=== PATIENT | male | born 1980 | race Caucasian/White ===

== ENCOUNTER 2018-01-04 15:15 | Emergency (ER) | payer OTHER | END 2018-01-04 16:47 | disposition home or self-care (01) | LOC: M ED 15:15 | DX: M62.830 Muscle spasm of back (principal); M54.9 Dorsalgia, unspecified; K21.9 Gastro-esophageal reflux disease without esophagitis; Z79.899 Other long term (current) drug therapy | CPT/HCPCS: 99282 ==

== ENCOUNTER 2020-11-30 18:01 | Emergency (ER) | payer OTHER ==
[~2020-11-30] VITALS: Ht 190.5 cm; Wt 93.8 kg
[~2020-11-30 18:01] MED LIST: CYCL-707 PO; IBUP80TA PO; NAPR-885 PO; NEXI40CA PO
[2020-11-30] MEDS ORDERED: SERT50TA29 (18:21)
[2020-11-30] MEDS ORDERED: ADDE12.5 PO (18:21)
[2020-11-30] MEDS ORDERED: STRA10CA PO (18:21)
--- NOTE | 2020-11-30 20:45 | REPVR ---
PROCEDURE INFORMATION: Exam: US Scrotum Exam date and time: 11/30/2020 7:01 PM Age: 40 years old Clinical indication: Scrotum pain; Prior surgery; Surgery date: 6+ months; Surgery type: Vasectomy; Additional info: Left testicular swelling TECHNIQUE: Imaging protocol: Real-time ultrasound of the scrotum and contents with color Doppler and image documentation. COMPARISON: No relevant prior studies available. FINDINGS: Right testicle: Right testicle measures 5.7 x 2.4 x 3.9 cm. Right testicle appears within normal limits without torsion. Left testicle: Left testicle measures 5.5 x 1.9 x 2.9 cm. Left testicle appears within normal limits without torsion. Epididymides: There is hyperemia involving the left epididymis and the adjacent soft tissues. Complex hypoechoic structure superior to the vas deferens on the left measuring up to 1.2 cm. Scrotum: There is left-sided varicocele. IMPRESSION: 1. Hyperemia involving the left epididymis and adjacent soft tissues compatible with epididymitis with adjacent cellulitis. 2. Complex hypoechoic structure on the left just superior to the vas deferens measuring 1.2 cm. Possible abscess formation, follow-up is recommended. 3. Testicles appear within normal limits. Electronically signed by: Mu Swanson On 11/30/2020 20:44:46 PM
[2020-11-30] MEDS ORDERED: DOXYCYCLINE HYCLATE 100MG TABLET PO ONE (21:05)
[2020-11-30] MEDS ORDERED: IBUP-1022 PO (21:24)
[2020-11-30] MEDS ORDERED: DOXY100C37 PO (21:24)
[2020-11-30 21:26] LABS: CHLAMYDIA DNA AMPLIFICATION NEGATIVE (NEGATIVE); GC DNA AMPLIFICATION NEGATIVE (NEGATIVE)
[2020-11-30 21:47] VITALS: BP 128/84
--- NOTE | 2020-12-01 07:25 | ED PDOC ---
Post-Departure Follow-Up radiology report faxed to martine Beaulieu Sarah MD December 01, 2020 07:24
== END 2020-11-30 22:01 | disposition home or self-care (01) ==
LOC: M ED 18:01
DX: N45.1 Epididymitis (principal); F90.9 Attention-deficit hyperactivity disorder, unspecified type